=== PATIENT | male | born 1995 | race Caucasian/White ===

== ENCOUNTER 2017-01-05 01:47 | Emergency (ER) | payer BC ==
[~2017-01-05] VITALS: Ht 185.4 cm; Wt 90.0 kg
[2017-01-05 01:50] VITALS: BP 113/54
[2017-01-05] MEDS ORDERED: ADDERALL15 MG PO (01:54)
[2017-01-05] MEDS ORDERED: ADDERALL30 MG PO (01:54)
[2017-01-05 02:38] VITALS: PULSE 70; TEMP 97.1
[2017-01-06] MEDS ORDERED: PREDNISONE20 MG PO (20:02)
[2017-01-06] MEDS ORDERED: ZANTAC 150MG T150 MG PO (20:02)
[2017-01-06] MEDS ORDERED: ZYRTEC 10MG10 MG PO (20:03)
[2017-01-06] MEDS ORDERED: ATARAX 25MG25 MG/TAB PO (21:37)
== END 2017-01-05 02:35 | disposition home or self-care (01) ==
LOC: COL.ER 01:47
DX: L50.9 Urticaria, unspecified (principal); F90.9 Attention-deficit hyperactivity disorder, unspecified type

== ENCOUNTER 2017-01-06 19:51 | Emergency (ER) | payer BC ==
[~2017-01-06] VITALS: Ht 185.4 cm; Wt 90.9 kg
[~2017-01-06 19:51] MED LIST: ADDERALL15 MG PO; ADDERALL30 MG PO
[2017-01-06 19:56] VITALS: BP 117/55; PULSE 79; TEMP 98
[2017-01-06] MEDS ORDERED: PREDNISONE20 MG PO (20:02)
[2017-01-06] MEDS ORDERED: ZANTAC 150MG T150 MG PO (20:02)
[2017-01-06] MEDS ORDERED: ZYRTEC 10MG10 MG PO (20:03)
[2017-01-06] MEDS ORDERED: ATARAX 25MG25 MG/TAB PO (21:37)
== END 2017-01-06 21:42 | disposition home or self-care (01) ==
LOC: COL.ER 19:51
DX: L50.9 Urticaria, unspecified (principal); F90.9 Attention-deficit hyperactivity disorder, unspecified type

== ENCOUNTER 2019-11-19 12:45 | Outpatient (RCR) | payer OTHER ==
[~2019-11-19 12:45] MED LIST changes: +ATARAX 25MG25 MG/TAB PO; +PREDNISONE20 MG PO; +ZANTAC 150MG T150 MG PO; +ZYRTEC 10MG10 MG PO
== END 2020-01-16 13:09 | disposition home or self-care (01) ==
LOC: WSOT 12:45
DX: S63.432A Traumatic rupture of volar plate of right middle finger at metacarpophalangeal and interphalangeal joint, initial encounter (principal)